=== PATIENT | male | born 1970 | race Caucasian/White ===

== ENCOUNTER 2017-11-20 16:24 | Inpatient (IN) | payer SELFPAY ==
[~2017-11-20] VITALS: Ht 177.8 cm; Wt 101.9 kg
[~2017-11-20 16:24] MED LIST: EPIN.3I IM; FAMO20 PO; OXYACE5T PO; PRED20 PO; RXOXYACE PO
[2017-11-20 16:50] LABS: Calcium, Ionized (POC) 1.09 mmol/L (1.10-1.46); Chloride (POC) 100 mmol/L (98-108); Creatinine (POC) 0.8 mg/dL (0.8-1.3); Glucose (ISTAT POC) 145 mg/dL (70-99); Hemoglobin (POC) 17.7 g/dL (13.5-17.5); Potassium (POC) 4.1 mmol/L (3.5-5.5); Sodium (POC) 140 mmol/L (135-148); Total CO2 (POC) 28 mmol/L (21-32)
[2017-11-20 17:01] LABS: BASOPHILS ABSOLUTE AUTO 0.08 K/mm3 (0.00-0.23); BASOPHILS PERCENT AUTO 1 % (0-2); EOSINOPHILS ABSOLUTE AUTO 0.16 K/mm3 (0.00-0.68); EOSINOPHILS PERCENT AUTO 2 % (0-6); Hematocrit 51.7 % (37.0-53.0); Hemoglobin 17.7 g/dL (13.5-17.5); IMMATURE GRAN PERCENT AUTO 1 % (0-1); LYMPHOCYTES ABSOLUTE AUTO 3.01 K/mm3 (0.84-5.20); LYMPHOCYTES PERCENT AUTO 28 % (21-46); MONOCYTES ABSOLUTE AUTO 0.99 K/mm3 (0.16-1.47); MONOCYTES PERCENT AUTO 9 % (4-13); Mean Corpuscular HGB Conc 34.2 g/dL (31.5-36.5); Mean Corpuscular Volume 91 fL (80-100); NEUTROPHILS ABSOLUTE AUTO 6.36 K/mm3 (1.96-9.15); NEUTROPHILS PERCENT AUTO 60 % (41-73); RDW Standard Deviation 46.5 fL (35.1-46.3); Red Blood Cell Count 5.71 M/mm3 (4.30-5.90)
[2017-11-20 17:17] LABS: Alanine Aminotransfer (ALT/SGP 46 U/L (12-78); Albumin, Blood 3.7 g/dL (3.4-5.0); Albumin/Globulin Ratio 0.9 (0.8-1.8); Alk Phos 103 U/L (50-136); Anion Gap 8 mmol/L (6-16); Aspartate Aminotrans (AST/SGOT 23 U/L (12-37); Bilirubin, Total 0.4 mg/dL (0.1-1.0); Blood Urea Nitrogen 8 mg/dL (8-24); Bun/Creatinine Ratio 9.5 (12.0-20.0); CO2, Blood 26 mmol/L (21-32); Calcium, Blood 8.7 mg/dL (8.5-10.1); Chloride, Blood 103 mmol/L (98-108); Creatinine, Blood 0.84 mg/dL (0.60-1.20); Globulin, Blood 4.1 g/dL (2.2-4.0); Glomerular Filtration Rate >60 (60-); Glucose, Blood 137 mg/dL (70-99); Potassium, Blood 3.4 mmol/L (3.5-5.5); Sodium, Blood 137 mmol/L (136-145); Total Protein, Blood 7.8 g/dL (6.4-8.2)
[2017-11-20 17:27] LABS: Troponin I <0.015 ng/mL (0.000-0.040)
[2017-11-20 17:30] LABS: Mean Platelet Volume 10.5 fL (9.1-12.4); Platelet Count 200 K/mm3 (150-400)
[2017-11-20 23:05] LABS: Troponin I 2.64 ng/mL (0.000-0.040)
[2017-11-21 05:56] LABS: Hematocrit 47.6 % (37.0-53.0); Mean Corpuscular HGB 30.3 pg (26.0-34.0); Mean Corpuscular HGB Conc 33.6 g/dL (31.5-36.5); Mean Corpuscular Volume 90 fL (80-100); Mean Platelet Volume 9.9 fL (9.1-12.4); Platelet Count 272 K/mm3 (150-400); RDW Coefficient Variation 14.2 % (11.7-14.2); RDW Standard Deviation 46.8 fL (35.1-46.3); Red Blood Cell Count 5.28 M/mm3 (4.30-5.90); White Blood Cell Count 11.14 K/mm3 (4.00-11.30)
[2017-11-21 06:15] LABS: Alanine Aminotransfer (ALT/SGP 39 U/L (12-78); Albumin, Blood 3.2 g/dL (3.4-5.0); Albumin/Globulin Ratio 0.9 (0.8-1.8); Alk Phos 102 U/L (50-136); Anion Gap 9 mmol/L (6-16); Aspartate Aminotrans (AST/SGOT 31 U/L (12-37); Bilirubin, Total 0.5 mg/dL (0.1-1.0); Blood Urea Nitrogen 7 mg/dL (8-24); Bun/Creatinine Ratio 9.5 (12.0-20.0); CO2, Blood 24 mmol/L (21-32); Calcium, Blood 8.2 mg/dL (8.5-10.1); Chloride, Blood 104 mmol/L (98-108); Cholesterol 188 mg/dL (50-200); Creatinine, Blood 0.73 mg/dL (0.60-1.20); Globulin, Blood 3.7 g/dL (2.2-4.0); Glomerular Filtration Rate >60 (60-); Glucose, Blood 142 mg/dL (70-99); HDL Cholesterol 27 mg/dL (>39); LDL/HDL RATIO Unable to Calculate; Low Density Lipoprotein Chol Unable to Calculate mg/dL (0-110); Potassium, Blood 4.2 mmol/L (3.5-5.5); Sodium, Blood 137 mmol/L (136-145); Total Protein, Blood 6.9 g/dL (6.4-8.2); Triglycerides 526 mg/dL (30-160); Very Low Density Lipoprot Chol Unable to Calculate mg/dL (6-32)
[2017-11-22 06:35] LABS: Anion Gap 8 mmol/L (6-16); Blood Urea Nitrogen 12 mg/dL (8-24); Bun/Creatinine Ratio 14.1 (12.0-20.0); CO2, Blood 24 mmol/L (21-32); Calcium, Blood 8.7 mg/dL (8.5-10.1); Chloride, Blood 103 mmol/L (98-108); Creatinine, Blood 0.85 mg/dL (0.60-1.20); Glomerular Filtration Rate >60 (60-); Glucose, Blood 145 mg/dL (70-99); Magnesium, Blood 2.1 mg/dL (1.6-2.4); Potassium, Blood 3.9 mmol/L (3.5-5.5); Sodium, Blood 135 mmol/L (136-145)
[2017-11-22] MEDS ORDERED: ASPI81CH PO (09:54)
[2017-11-22] MEDS ORDERED: ATOR40TA PO (09:55)
[2017-11-22] MEDS ORDERED: Coreg25 MG PO (09:58)
[2017-11-22] MEDS ORDERED: CLOP75 PO (09:59)
[2017-11-22] MEDS ORDERED: FAMO20 PO (10:00)
[2017-11-22] MEDS ORDERED: HYDCHL25 PO (10:01)
[2017-11-22] MEDS ORDERED: LISI5 PO (10:02)
[2017-11-22] MEDS ORDERED: OMEG1CAP30 PO (10:03)
== END 2017-11-22 10:50 | disposition home or self-care (01) | DRG 247 ==
LOC: ER 16:24 → ICUW 17:10 → ER 18:25 → ICUW 18:25 → ICUE 18:33 → ICUW 11-21 08:38 → ENPENDDIS 11-22 10:36 → ICUW 11-22 10:50
PROVIDERS: Emergency Medicine; Internal Medicine
PROC: 027034Z Dilation of Coronary Artery, One Artery with Drug-eluting Intraluminal Device, Percutaneous Approach (ICD-10-PCS; principal; 2017-11-20)
PROC: 02C03ZZ Extirpation of Matter from Coronary Artery, One Artery, Percutaneous Approach (ICD-10-PCS; 2017-11-20)
PROC: B2111ZZ Fluoroscopy of Multiple Coronary Arteries using Low Osmolar Contrast (ICD-10-PCS; 2017-11-20)
DX: I21.09 ST elevation (STEMI) myocardial infarction involving other coronary artery of anterior wall (principal); I25.10 Atherosclerotic heart disease of native coronary artery without angina pectoris; R03.0 Elevated blood-pressure reading, without diagnosis of hypertension; E78.1 Pure hyperglyceridemia; Z82.49 Family history of ischemic heart disease and other diseases of the circulatory system; Z87.891 Personal history of nicotine dependence; Z88.1 Allergy status to other antibiotic agents
CPT/HCPCS: 36415; 71045; 80047; 80048; 80053; 80061; 83036; 83735; 83880; 84132; 84484; 85014; 85025; 85027; 85347; 85379; 93005; 93010; 93306; 93454; 96374; 96375; 99152; 99153; 99285-25; C1725; C1757; C1769; C1874; C1894; C9606; J1644; J2250; J3010; J7030; J7040; Q9967

== ENCOUNTER → 2019-05-11 | Outpatient (CLI) | payer BC ==
[~2019-05-11] MED LIST changes: +ASPI81CH PO; +ATOR40TA PO; +CLOP75 PO; +Coreg25 MG PO; +HYDCHL25 PO; +LISI5 PO; +OMEG1CAP30 PO
[2019-05-11 10:20] LABS: BASOPHILS ABSOLUTE AUTO 0.04 K/mm3 (0.00-0.23); BASOPHILS PERCENT AUTO 1 % (0-2); EOSINOPHILS ABSOLUTE AUTO 0.11 K/mm3 (0.00-0.68); EOSINOPHILS PERCENT AUTO 2 % (0-6); Hematocrit 44.7 % (37.0-53.0); Hemoglobin 15.5 g/dL (13.5-17.5); IMMATURE GRAN ABSOLUTE AUTO 0.03 K/mm3 (0.00-0.10); IMMATURE GRAN PERCENT AUTO 0 % (0-1); LYMPHOCYTES ABSOLUTE AUTO 1.39 K/mm3 (0.84-5.20); LYMPHOCYTES PERCENT AUTO 18 % (21-46); MONOCYTES PERCENT AUTO 9 % (4-13); Mean Corpuscular HGB 31.3 pg (26.0-34.0); Mean Corpuscular HGB Conc 34.7 g/dL (31.5-36.5); Mean Corpuscular Volume 90 fL (80-100); Mean Platelet Volume 10.3 fL (9.1-12.4); NEUTROPHILS ABSOLUTE AUTO 5.28 K/mm3 (1.96-9.15); NEUTROPHILS PERCENT AUTO 70 % (41-73); Platelet Count 230 K/mm3 (150-400); RDW Coefficient Variation 12.5 % (11.7-14.2); RDW Standard Deviation 40.8 fL (35.1-46.3); Red Blood Cell Count 4.95 M/mm3 (4.30-5.90); White Blood Cell Count 7.55 K/mm3 (4.00-11.30)
[2019-05-11 10:30] LABS: Alanine Aminotransfer (ALT/SGP 57 U/L (12-78); Albumin, Blood 3.6 g/dL (3.4-5.0); Albumin/Globulin Ratio 0.8 (0.8-1.8); Alk Phos 102 U/L (40-126); Anion Gap 10 mmol/L (6-16); Bilirubin, Total 0.5 mg/dL (0.1-1.0); Blood Urea Nitrogen 9 mg/dL (8-24); Bun/Creatinine Ratio 11.8 (12.0-20.0); CO2, Blood 26 mmol/L (21-32); Calcium, Blood 9.2 mg/dL (8.5-10.1); Chloride, Blood 96 mmol/L (98-108); Creatinine, Blood 0.76 mg/dL (0.60-1.20); Globulin, Blood 4.5 g/dL (2.2-4.0); Glomerular Filtration Rate >60 (60-); Glucose, Blood 329 mg/dL (70-99); Potassium, Blood 4.2 mmol/L (3.5-5.5); Sodium, Blood 132 mmol/L (136-145); Total Protein, Blood 8.1 g/dL (6.4-8.2)
[2019-05-11 10:33] LABS: Aspartate Aminotrans (AST/SGOT 21 U/L (12-37)
== END | disposition home or self-care (01) ==
LOC: LAB SHORT 10:15 → LAB EV 10:15
PROVIDERS: Physician Assistant Surgical
DX: I10 Essential (primary) hypertension (principal)
CPT/HCPCS: 80053; 85025

== ENCOUNTER → 2020-01-09 | Outpatient (CLI) | payer BC | END | disposition home or self-care (01) | LOC: LAB 12:57 → LAB SHORT 12:57 | DX: L02.31 Cutaneous abscess of buttock (principal) | CPT/HCPCS: 87070; 87075; 87147; 87205 ==

== ENCOUNTER 2020-10-06 09:14 | Inpatient (IN) | payer BC ==
[~2020-10-06] VITALS: Ht 177.8 cm; Wt 99.1 kg
[~2020-10-06 09:14] MED LIST changes: -ASPI81CH PO; +Aspir 8181 MG PO; -OMEG1CAP30 PO; +OMEGA-3 + D SO1 EACH PO
[2020-10-06 11:04] LABS: BASOPHILS ABSOLUTE AUTO 0.01 K/mm3 (0.00-0.23); BASOPHILS PERCENT AUTO 0 % (0-2); EOSINOPHILS PERCENT AUTO 0 % (0-6); Hematocrit 41.8 % (37.0-53.0); Hemoglobin 14.7 g/dL (13.5-17.5); Mean Corpuscular HGB 30.2 pg (26.0-34.0); Mean Corpuscular HGB Conc 35.2 g/dL (31.5-36.5); Mean Corpuscular Volume 86 fL (80-100); Mean Platelet Volume 9.6 fL (9.1-12.4); Platelet Count 161 K/mm3 (150-400); RDW Coefficient Variation 11.9 % (11.7-14.2); RDW Standard Deviation 37.7 fL (35.1-46.3); Red Blood Cell Count 4.87 M/mm3 (4.30-5.90); White Blood Cell Count 3.94 K/mm3 (4.00-11.30)
[2020-10-06 11:07] LABS: IMMATURE GRAN ABSOLUTE AUTO 0.02 K/mm3 (0.00-0.10); IMMATURE GRAN PERCENT AUTO 1 % (0-1); LYMPHOCYTES ABSOLUTE AUTO 0.48 K/mm3 (0.84-5.20); LYMPHOCYTES PERCENT AUTO 12 % (21-46); MONOCYTES ABSOLUTE AUTO 0.31 K/mm3 (0.16-1.47); MONOCYTES PERCENT AUTO 8 % (4-13); NEUTROPHILS ABSOLUTE AUTO 3.12 K/mm3 (1.96-9.15); NEUTROPHILS PERCENT AUTO 79 % (41-73)
[2020-10-06 11:42] LABS: Alanine Aminotransfer (ALT/SGP 109 U/L (12-78); Albumin, Blood 2.9 g/dL (3.4-5.0); Albumin/Globulin Ratio 0.6 (0.8-1.8); Alk Phos 90 U/L (50-136); Anion Gap 13 mmol/L (6-16); Aspartate Aminotrans (AST/SGOT 169 U/L (12-37); Bilirubin, Total 0.5 mg/dL (0.1-1.0); Blood Urea Nitrogen 12 mg/dL (8-24); Bun/Creatinine Ratio 12.5 (12.0-20.0); CO2, Blood 20 mmol/L (21-32); Calcium, Blood 8.5 mg/dL (8.5-10.1); Chloride, Blood 90 mmol/L (98-108); Creatinine, Blood 0.96 mg/dL (0.60-1.20); Globulin, Blood 4.6 g/dL (2.2-4.0); Glomerular Filtration Rate >60 (60-); Glucose, Blood 263 mg/dL (70-99); Lactate Dehydrogenase (Ld),Bld 967 U/L (100-240); Potassium, Blood 3.6 mmol/L (3.5-5.5); Sodium, Blood 123 mmol/L (136-145); Total Protein, Blood 7.5 g/dL (6.4-8.2)
[2020-10-06 12:11] LABS: Ferritin, Serum 4177 ng/mL (26-388)
[2020-10-06] MEDS ORDERED: NEBI5 PO (12:51)
[2020-10-06 13:09] LABS: PCO2 Arterial 25.6 mmHg (35-45); PO2 Arterial 49.6 mmHg (80-100); pH Blood Arterial 7.42 (7.35-7.45)
[2020-10-07 05:54] LABS: BASOPHILS ABSOLUTE AUTO 0.02 K/mm3 (0.00-0.23); BASOPHILS PERCENT AUTO 1 % (0-2); EOSINOPHILS PERCENT AUTO 0 % (0-6); Hematocrit 39.2 % (37.0-53.0); Mean Corpuscular HGB 31.2 pg (26.0-34.0); Mean Corpuscular HGB Conc 35.7 g/dL (31.5-36.5); Mean Corpuscular Volume 87 fL (80-100); Mean Platelet Volume 9.8 fL (9.1-12.4); Platelet Count 167 K/mm3 (150-400); RDW Coefficient Variation 12.1 % (11.7-14.2); RDW Standard Deviation 39.1 fL (35.1-46.3); Red Blood Cell Count 4.49 M/mm3 (4.30-5.90); White Blood Cell Count 3.56 K/mm3 (4.00-11.30)
[2020-10-07 06:03] LABS: IMMATURE GRAN ABSOLUTE AUTO 0.02 K/mm3 (0.00-0.10); IMMATURE GRAN PERCENT AUTO 1 % (0-1); LYMPHOCYTES ABSOLUTE AUTO 0.58 K/mm3 (0.84-5.20); LYMPHOCYTES PERCENT AUTO 16 % (21-46); MONOCYTES ABSOLUTE AUTO 0.34 K/mm3 (0.16-1.47); MONOCYTES PERCENT AUTO 10 % (4-13); NEUTROPHILS PERCENT AUTO 73 % (41-73)
[2020-10-07 06:14] LABS: Alanine Aminotransfer (ALT/SGP 87 U/L (12-78); Albumin, Blood 2.6 g/dL (3.4-5.0); Albumin/Globulin Ratio 0.6 (0.8-1.8); Alk Phos 80 U/L (50-136); Anion Gap 11 mmol/L (6-16); Aspartate Aminotrans (AST/SGOT 111 U/L (12-37); Bilirubin, Total 0.5 mg/dL (0.1-1.0); Blood Urea Nitrogen 19 mg/dL (8-24); Bun/Creatinine Ratio 20.6 (12.0-20.0); CO2, Blood 20 mmol/L (21-32); Calcium, Blood 8.9 mg/dL (8.5-10.1); Chloride, Blood 99 mmol/L (98-108); Creatinine, Blood 0.92 mg/dL (0.60-1.20); Globulin, Blood 4.2 g/dL (2.2-4.0); Glomerular Filtration Rate >60 (60-); Glucose, Blood 305 mg/dL (70-99); Potassium, Blood 3.9 mmol/L (3.5-5.5); Sodium, Blood 130 mmol/L (136-145); Total Protein, Blood 6.8 g/dL (6.4-8.2)
--- NOTE | 2020-10-07 18:17 | NUR ---
SHIFT SUMMARY NO ACUTE EVENTS SINCE ARRIVAL FROM ED, PT IS ALERT AND ORIENTED. PT CALLS APPROPRIATELY AND IS INDEPENDENT IN ROOM. NEGATIVE FOR CIWA. PT REMAINS ON AIRVO, MAINTAINING >90% FOR MAJORITY OF TIME, WILL DROP TO O2 SATURATION OF HIGH 80s AT TIMES WITH AMBULATION BUT RECOVERS TO 90%+ QUICKLY. PT DENIES PAIN/DIZZINESS/NAUSEA.
--- NOTE | 2020-10-08 06:37 | NUR ---
SHIFT SUMMARY PT AOX4, ON TELE SINUS IN 70'S. BREATHING EVEN AND UNLABORED WHILE IN BED. UP INDEPENDENTLY TO USE URINAL IN ROOM. NEEDS SOME ASSISTANCE TO TAKE AIRVO TO THE BATHROOM. HAD X2 BM. ONE SMALL, AND ONE EPISODE OF SCANT SOFT STOOL. COLOR IS DARK, BLACK. PT HAD SEVERAL EPISODES OF DESATURATION INTO LOW 80'S WHILE ON AIRVO. AROUND 0600 PT DESATS TO 83% WHILE LAYING ON R SIDE SLEEPING WHILE ON 55 L 80% AIRVO, TURNED UP TO 85%. PT DYSPNEIC W/EXERTION. CBG'S HIGH THROUGH SHIFT, DOSED PER MEDIUM AND THEN HIGH SLIDING SCALE.
--- NOTE | 2020-10-08 11:43 | NUR ---
PHYSICIAN NOTIFIED PHYSICIAN NOTIFIED PT'S CBG OVER 350. ORDERS TO HAVE INSULIN SLIDING SCALE CHAGNED TO HIGH. SEE EHR.
--- NOTE | 2020-10-08 18:21 | NUR ---
SHIFT SUMMARY PT ALERT AND ORIENTED. CIWA STABLE AT 2. HR STABLE. BP STABLE. NO CP OR PRESSURE REPORTED. OXYGEN SATURATION MAINTAINED ABOVE 90% ON AIRVO AT 55 L/70%. PT DESATS WITH ACTIVITY. ENCOURAGED TO PRONE. PT STATES HE CANNOT PRONE BUT ABLE TO LAY ON SIDE. NO DIARRHEA REPORTED THIS SHIFT. PT IND IN ROOM AT THIS TIME. WILL CONT TO MONITOR UNTIL REPORT GIVEN TO NIGHTSHIFT RN.
--- NOTE | 2020-10-09 04:58 | NUR ---
SHIFT SUMMARY PATIENT IS ALERT AND ORIENTED X4. 0XYGEN NEEDS INCREASED WHILE SLEEPING. 02 SATS 91% ON AIRVO @50L 80% FIO2. PT TEACHING ON NOT EXERTING SELF TOO MUCH DUE TO OXYGEN NEEDS AND 02 DESATURATES SIGNIFICANTLY WITH ACTIVITY. BLOOD GLUCOSE OF 407 CALLED TO HOSPITALIST AND PATIENT COVERED PER EMAR, ORDERS TO RECHECK IN 2 HOURS, PT CBG TRENDING DOWN. PATIENT IS INDEPENDENT IN THE ROOM. VSS, NO ACUTE CHANGES. CALL LIGHT IN REACH.
--- NOTE | 2020-10-09 18:01 | NUR ---
SHIFT SUMMARY PT ALERT AND ORIENTED X 4. REPORTS TO BE MORE "EXHAUSTED TODAY." DESATS QUICKLY WITH ACTIVITY. INCREASE IN O2 DEMAND TO 60L AND 83% FIO2 ON AIRVO TO MAINTAIN O2 SATS ABOVE 90%. PT AGREED TO PRONE. PT O2 SATURATION GREATLY IMPROVED TO 94-96% WHILE PRONING. PT PROVIDED WITH ENCOURAGMENT TO CONT TO PRONE, IMPROVEMENTS ARE SEEN. PT ABLE TO TURN SELF IN BED NEEDED. HR STABLE. BP STABLE. NO CP OR PRESSURE REPORTED. CALL LIGHT WITHIN REACH. WILL CONT TO MONITOR UNTIL REPORT GIVEN TO NIGHTSHIFT RN.
[2020-10-10 04:02] LABS: BASOPHILS ABSOLUTE AUTO 0.02 K/mm3 (0.00-0.23); BASOPHILS PERCENT AUTO 0 % (0-2); EOSINOPHILS PERCENT AUTO 0 % (0-6); Hemoglobin 14.5 g/dL (13.5-17.5); Mean Corpuscular HGB 30.7 pg (26.0-34.0); Mean Corpuscular HGB Conc 35.4 g/dL (31.5-36.5); Mean Corpuscular Volume 87 fL (80-100); Mean Platelet Volume 9.6 fL (9.1-12.4); Platelet Count 268 K/mm3 (150-400); RDW Coefficient Variation 11.9 % (11.7-14.2); RDW Standard Deviation 38.5 fL (35.1-46.3); Red Blood Cell Count 4.73 M/mm3 (4.30-5.90); White Blood Cell Count 8.51 K/mm3 (4.00-11.30)
[2020-10-10 04:07] LABS: IMMATURE GRAN ABSOLUTE AUTO 0.04 K/mm3 (0.00-0.10); IMMATURE GRAN PERCENT AUTO 1 % (0-1); LYMPHOCYTES ABSOLUTE AUTO 0.78 K/mm3 (0.84-5.20); LYMPHOCYTES PERCENT AUTO 9 % (21-46); MONOCYTES ABSOLUTE AUTO 0.45 K/mm3 (0.16-1.47); MONOCYTES PERCENT AUTO 5 % (4-13); NEUTROPHILS ABSOLUTE AUTO 7.22 K/mm3 (1.96-9.15); NEUTROPHILS PERCENT AUTO 85 % (41-73)
[2020-10-10 04:22] LABS: Albumin, Blood 2.6 g/dL (3.4-5.0); Anion Gap 10 mmol/L (6-16); Blood Urea Nitrogen 21 mg/dL (8-24); Bun/Creatinine Ratio 26.9 (12.0-20.0); CO2, Blood 23 mmol/L (21-32); Calcium, Blood 8.7 mg/dL (8.5-10.1); Chloride, Blood 100 mmol/L (98-108); Creatinine, Blood 0.78 mg/dL (0.60-1.20); Glomerular Filtration Rate >60 (60-); Glucose, Blood 280 mg/dL (70-99); Magnesium, Blood 1.9 mg/dL (1.6-2.4); Phosphorus, Blood 4.4 mg/dL (2.5-4.9); Potassium, Blood 3.8 mmol/L (3.5-5.5); Sodium, Blood 133 mmol/L (136-145)
--- NOTE | 2020-10-10 05:05 | NUR ---
SHIFT SUMMARY PATIENT IS ALERT AND ORIENTED X4. 02 SATS 94% ON AIRVO 60L FI02 80% WHILE PRONING. ANY EXERTION OR PATIENT NOT PRONING 02 SATS 83-86%. PATIENT HAS BEEN PRONING ALL NIGHT. COUGHING UP PHLEGM, AND HAVING COUGHING FITS, CALLED HOSPITALIST AND GAVE MUCINEX, SEE EMAR. PATIENT TEACHING PROVIDED ON SAFETY AND PATIENT AGREED TO STOP WALKING ACROSS THE ROOM WITHOUT STAFF PRESENT DUE TO OXYGEN REQUIREMENTS. CBG OF [phone] CALLED TO HOSPITALIST RECHECKED AT MIDNIGHT AND TRENDING DOWN. PATIENT INDEPENDENT WITH REPOSITIONING. CALL LIGHT IN REACH.
[2020-10-10 06:53] LABS: BASOPHILS PERCENT MAN 0 % (0-2); EOSINOPHILS PERCENT MAN 0 % (0-6); LYMPHOCYTES % ATYPICAL MANUAL 2 % (0-0); LYMPHOCYTES ABSOLUTE MAN 1.02 K/mm3 (0.84-5.20); LYMPHOCYTES PERCENT MAN 10 % (21-46); MONOCYTES ABSOLUTE MAN 0.25 K/mm3 (0.16-1.47); MONOCYTES PERCENT MAN 3 % (4-13); NEUTROPHILS ABSOLUTE MAN 7.23 K/mm3 (1.96-9.15); SEG NEUTROPHILS PERCENT MAN 85 % (41-73); TOTAL CELLS COUNTED 100
--- NOTE | 2020-10-10 10:58 | NUR ---
PT ALERT AND ORIENTED X4. NEURO WNL. PT TIRED AND SLEEPY. ON AIRVO AT 60L AND 86% THIS AM. LUNGS SOUNDING DIM AND COARSE. COUGHING ON AND OFF. PRODUCTIVE, HARSH, HACKING, COUGH. SATING 90-93%. WHEN UP MOVING AROUND, DESATS TO LOW 80'S. ABLE TO RECOVER AFTER 3-4 MIN. PRONING ENCOURAGED. TELE SHOWING SINUS WITH HR 70'S. DENIES CHEST PAIN/PRESSURE. VITAL SIGNS STABLE. BOWEL TONES PRESENT. USING URINAL AT BEDSIDE. OVERALL FEELING WEAK. SKIN - SCATTERED BRUISING. ACHS, BLOOD SUGARS. EATING WELL. CIWA SCORED 0. DENIES PAIN/NEEDS AT THIS TIME. WILL CONTINUE TO ENCOURAGE PRONING AND MONITOR STATUS. CALL LIGHT IN REACH.
--- NOTE | 2020-10-10 14:17 | NUR ---
PT SLEEPING AT THIS TIME. PRONING ON AND OFF THROUGHOUT THE AFTERNOON. VERY MOTIVATED IN WORKING ON PEEP VALVE PROVIDED BY [facility]ATORY CARE. WILL CONTINUE TO MONITOR.
--- NOTE | 2020-10-10 18:24 | NUR ---
SHIFT SUMMARY: NO ACUTE CHANGES. AIRVO 60L AND 84%. TELE REMAINS UNCHANGED. PT USING PEEP BREATHING DEVICE THROUGHOUT SHIFT. MOTIVATED TO GET BETTER. UP IN RECLINER FOR MEALS. SLEEPING ON AND OFF. USING URINAL AT BEDSIDE. CALL LIGHT IN REACH. DENIES NEEDS AT THIS TIME. WILL CONTINUE TO MONITOR AND REPORT OFF.
--- NOTE | 2020-10-10 20:33 | NUR ---
ASSUMED CARE PT SELF PRONED UPON ARRIVAL. IS ALERT AND ORIENTED. VITAL SIGNS ARE STABLE. SATS WERE ABOVE 90% ON AIRVO 60L 84%. PT DENIES CHEST PAIN. IS USING URINAL AT BEDSIDE. CALL LIGHT IS WITHIN REACH. WILL CONTINUE TO MONITOR.
--- NOTE | 2020-10-11 02:23 | NUR ---
PT IS NOW ON 60L 90%FIO2 AIRVO
--- NOTE | 2020-10-11 03:59 | NUR ---
PT IS ON 60L 95%FIO2 WITH SATS 85-51%.
--- NOTE | 2020-10-11 05:37 | NUR ---
SHIFT SUMMARY PT IS ALERT AND ORIENTED. VITALS ARE STABLE. PT IS ON AIRVO 60L 95%FIO2 WITH SATS OF 85-90. PT DESATS WITH ANY EXERSION. PT HAS A VERY HARD TIME CATCHING BREATH AND DESATS TO HI70'S LOW80'S WHEN SITTING UP TO USE URINAL. PT VERBALIZED "IM DYING IN HERE" WHEN SHORT OF BREATH. HE IS LAYING ON SIDE AND ALMOST TO PRONING BUT STATES THAT IT IS TOO HARD FOR HIM, BUT TRYING. CALL LIGHT IS WITHIN REACH.
[2020-10-11 08:51] LABS: PCO2 Arterial 33.2 mmHg (35-45); PO2 Arterial 51.7 mmHg (80-100); pH Blood Arterial 7.52 (7.35-7.45)
--- NOTE | 2020-10-11 09:00 | NUR ---
PT ALERT AND ORIENTED X4. ON AIRVO THIS AM SATING 83-84%. SWITCHED OVER TO BIPAP AT 0830, SETTINGS 09/02 AT 100%. SATING NOW 90-92% ON BIPAP. ANXIETY WHEN BIPAP WAS FIRST APPLIED, NEW ORDER FOR ONE DOSE ATIVAN GIVEN. PATIENT ABLE TO SIT IN RECLINER WITH BIPAP. HARSH, PRODUCTIVE COUGH. TELE SHOWING SINUS WITH HR 70'S. DENIES CHEST PAIN/PRESSURE. VITAL SIGNS STABLE. DENIES ANY PAIN THIS AM. COMPLAINS OF SHORTNESS OF BREATH. BOWEL TONES PRESENT. PPP. SKIN - BRUISING SCATTERED THROUGHOUT. PATIENT ABLE TO STAND AND TRANSFER FROM BED TO RECLINER. USING URINAL AT BEDSIDE. EDUCATION ABOUT POSSIBLE NEXT STEPS AND INTUBATION DISCUSSED WITH PATIENT. PATIENT ACKNOWLEDGES THESE NEXT STEPS BUT CONSISTENTLY ASKING FOR WATER. WATER GIVEN IN SHORT PERIODS HE IS ON BIPAP AT THIS TIME. CALL PLACED TO DR. AGUILERA TO UPDATE ON PATIENT CONDITION. NEW ORDERS FOR D-DIMER, ABG AND CHEST XRAY.
--- NOTE | 2020-10-11 11:10 | NUR ---
TRANSFER: PATIENT TRANSFER TO ICU 6 VIA RECLINER AND BIPAP. BIPAP SETTINGS REMAIN THE SAME 09/02 AT 100%. SATING 89-90%. VITAL SIGNS REMAIN STABLE. PATIENT FEELING ANXIOUS. NO CHANGES IN TELE. PATIENT TRANSFERRED WITH ALL BELONGINGS. REPORTED OFF TO ICU NURSE.
--- NOTE | 2020-10-11 11:21 | NUR ---
VERBAL ORDER FOR RESTRAINTS... THE PT WAS INTUBATED AT 1121, DR. LANDIN GAVE THIS RN A VERBAL ORDER TO APPLY BILATERAL WRIST RESTRAINTS TO PREVENT SELF EXTUBATION. SWB WERE APPLIED AT THIS TIME BY THIS RN.
--- NOTE | 2020-10-11 12:00 | NUR ---
PT UPDATE... AT 1056 PT WAS TRANSFERED OVER TO THE ICU FROM PCU, PT WAS IN A RECLINER CHAIR WHEN HE ARRIVED ON THE UNIT, THE PT WAS ON THE BIPAP AT 13/11 AND 100% PT'S O2 SATS WERE IN THE LOW 90'S. PT STOOD FROM THE CHAIR TO THE BED AND SAT ON THE SIDE OF THE BED, THE PT'S O2 SATS DROPPED DOWN TO THE 60'S THEN DOWN TO THE 40'S, THE PT WAS GIVEN 2MG IV ATIVAN TO HELP RELAX THE PT. AT 1107 DR. LANDIN WAS CALLED TO THE ROOM TO ASSESS THE PT, THE PLAN WAS TO INTUBATE THE PT. THE PT WAS PREPPED FOR INTUBATION, THE PT'S O2 SATS WERE UP TO THE 70'S AT THIS TIME. AT 1112 THE PT WAS GIVEN 50MCG OF IV FENTANYL, AT 1117 HE WAS GIVEN 20 OF ETOMIDATE, 80MCG OF PROPOFOL, AT 1118 THE PT WAS GIVEN 20 OF JAIDEN, AN ATTEMPT TO INTUBATE WAS DONE AT THIS TIME, THE PT WAS STILL AWAKE SO ANOTHER 40MCG OF PROPOFOL WAS GIVEN AFTER THIS WAS GIVEN THE PT WAS INTUBATED WITH AN ET TUBE SIZE 8.0, 24 AT THE LIP WITH COLOR CHANGE AT 1121. THE PT'S VENT SETTINGS DURING THIS TIME WERE AC/PC 12/20/100%FIO2 WITH O2 SATS AT 91%. THE PT WAS STARTED ON A PROPOFOL DRIP, THE DRIP WAS TITRATED UP TO 80MCG D/T THE PT'S VENT INTOLERANCE, AT 1143 THE PT WAS GIVEN 4MG IV ATIVAN, DURING THIS TIME THE PT'S BP DROP WITH MAPS <60, DR. LANDIN AWARE AND A 500MLS BOLUS OF NS WAS STARTED, THIS DID NOT IMPROVE HIS BP, DR. LANDIN ORDERED A LEVOPHED DRIP, PHARMACY WAS CALLED TO GET THE DRIP STAT. DURING THIS TIME THE PT'S BP CONTINUED TO DROP, AT 1156 THE PT WAS GIVEN 1MG IV NEOSENEPHRINE, THIS DID NOT BRING HIS MAP >60 AT 1158 THE PT WAS GIVEN ANOTHER DOSE OF 1MG IV DARRIN. AFTER THIS THE LEVOPHED DRIP ARRIVED AND WAS STARTED BY THIS RN. DR. LANDIN GAVE THE OKAY TO GIVE THE LEVOPHED PERIPHREALLY IN THE PT'S 18G IN THE RIGHT AC UNTIL A LINE COULD BE OBTAINED. AT 1210 THE PT'S HR STARTED TO TREND DOWN FROM THE 70'S TO THE 50'S THEN THE 40'S. THE PT'S PROPOFOL HAD BEEN DECREASED BACK DOWN TO 10MCG D/T THE PT'S BRADYCARDIA. DR. LANDIN NOTIFIED AND AN ORDER WAS OBTAINED FOR 1/2 AMP OF ATROPINE, THIS WAS GIVEN AND THE PT'S HR IMPROVED BACK UP TO THE 60'S. THE PT WAS STARTED ON A VERSED DRIP AT 2MG/HR. AT 1230 WAS AT THE BEDSIDE TO START A RIGHT IJ CENTRAL LINE. THE PT WAS GIVEN 2MG IV VERSED PUSH FROM THE VERSED DRIP, AND THE DRIP WAS INCREASED FROM 2MG/HR TO 4MG/HR PER DR. LANDIN. AT 1253 THE PT WAS GIVEN ANOTHER 4MG IV PUSH OF VERSED D/T THE PT NOT BEING SEDATED ENOUGH TO INSERT THE CENTRAL LINE. AFTER THIS WAS DONE DR. LANDIN WAS ABLE TO GET THE CENTRAL LINE IN PLACE. A CHEST XRAY WAS DONE AND CONFRIMED PLACEMENT OF THE ET TUBE, THE OG TUBE AND THE RIGHT IJ CENTRAL LINE. AT APROX 1440 THE PT WAS TAKEN TO CT FOR A CTA TO R/O P.E. AND WAS BROUGHT BACK TO THE ROOM WITH OUT ANY ISSUE. THE PT'S FAMILY WAS NOTIFIED OF THE CHANGE IN THE PT'S CONDITION, THE PT'S DAUGHTER CAME INTO THE ICU FOR AN UPDATE BY DR. DIA AND THEN LEFT. THE PT'S VS HAVE BEEN STABLE SINCE RETURNING FROM CT. A TEMP OAKES WAS PLACED BY THIS RN. WILL CONTINUE TO MONITOR.
[2020-10-11 13:44] LABS: Source, Urine Catheter
[2020-10-11 13:49] LABS: Appearance, Urine Clear (Clear); Bilirubin, Urine Neg (Neg); Blood, Urine Neg (Neg); Color, Urine Yellow (P-Yellow); Glucose Qualitative, Urine 4+ (Neg); Ketones, Urine 2+ (Neg); Leukocyte Esterase, Urine Neg (Neg); Nitrite, Urine Neg (Neg); Protein, Urine 2+ (Neg); Specific Gravity, Urine 1.015 (1.003-1.022); Urobilinogen, Urine NORM (Normal)
[2020-10-11 13:56] LABS: Bacteria Mod /hpf; Hyaline Casts 0-2 /lpf (0-2); Red Blood Cells, Urine Not Seen /hpf (0-2); Squamous Epithelial Cells Rare /hpf (Few); White Blood Cells, Urine 0-2 /hpf (0-5)
--- NOTE | 2020-10-11 18:57 | NUR ---
SHIFT SUMMARY... NO ACUTE NEGATIVE CHANGES SINCE PREVIOUS NOTES. THE PT'S VERSED DRIP WAS TITRATED OFF, THE PROPOFOL WAS INCREASED TO 35MCG, THE LEVOPHED CONITNUES AT 4MCG WITH MAPS >65. THE PT'S OAKES IS PATENT AND DRAINED 2250MLS OF CLEAR YELLOW URINE THIS SHIFT. PT HAS NOT HAD A BM. PT'S HR CONTINUES TO BE IN THE 50'S-60'S THIS IS OKAY PER DR. LANDIN. THE PT HAS VERY SCANT TO NO SECRETIONS SUCTIONED AT THIS TIME. L/S CONTINUE TO BE CLEAR AND DIM. PT'S FAMILY UPDATED ON THE PT'S CONIDTION AND PLAN OF CARE. WILL CONTINUE TO MONITOR UNTIL REPORT IS GIVEN TO ONCOMING RN.
--- NOTE | 2020-10-11 20:15 | NUR ---
20GA TO L FA
[2020-10-12 05:24] LABS: BASOPHILS ABSOLUTE AUTO 0.01 K/mm3 (0.00-0.23); BASOPHILS PERCENT AUTO 0 % (0-2); EOSINOPHILS ABSOLUTE AUTO 0.09 K/mm3 (0.00-0.68); EOSINOPHILS PERCENT AUTO 1 % (0-6); Hematocrit 40.3 % (37.0-53.0); Hemoglobin 13.9 g/dL (13.5-17.5); IMMATURE GRAN ABSOLUTE AUTO 0.08 K/mm3 (0.00-0.10); IMMATURE GRAN PERCENT AUTO 1 % (0-1); LYMPHOCYTES ABSOLUTE AUTO 0.47 K/mm3 (0.84-5.20); LYMPHOCYTES PERCENT AUTO 7 % (21-46); MONOCYTES ABSOLUTE AUTO 0.26 K/mm3 (0.16-1.47); MONOCYTES PERCENT AUTO 4 % (4-13); Mean Corpuscular HGB Conc 34.5 g/dL (31.5-36.5); Mean Corpuscular Volume 90 fL (80-100); Mean Platelet Volume 10.2 fL (9.1-12.4); NEUTROPHILS ABSOLUTE AUTO 6.05 K/mm3 (1.96-9.15); NEUTROPHILS PERCENT AUTO 87 % (41-73); Platelet Count 193 K/mm3 (150-400); RDW Coefficient Variation 12.4 % (11.7-14.2); Red Blood Cell Count 4.49 M/mm3 (4.30-5.90); White Blood Cell Count 6.96 K/mm3 (4.00-11.30)
[2020-10-12 05:49] LABS: Anion Gap 6 mmol/L (6-16); Blood Urea Nitrogen 16 mg/dL (8-24); Bun/Creatinine Ratio 22.6 (12.0-20.0); CO2, Blood 29 mmol/L (21-32); Calcium, Blood 8.9 mg/dL (8.5-10.1); Chloride, Blood 102 mmol/L (98-108); Creatinine, Blood 0.71 mg/dL (0.60-1.20); Glomerular Filtration Rate >60 (60-); Glucose, Blood 212 mg/dL (70-99); Sodium, Blood 137 mmol/L (136-145)
--- NOTE | 2020-10-12 06:21 | NUR ---
SHIFT SUMMARY PT REMAINS FAIRLY STABLE THROUGHOUT THE NIGHT WITH ONLY 1 MCG OF LEVOPHED TO MAINTAIN ADEQUATE BP, UNTIL A SLIGHT REPOSITION AT 0515 RESULTED IN HIS SPO2 DROPPING TO 85%. SEDATION WAS INCREASED AND FENTANYL GIVEN FOR PAIN, WITH NO RESULT. RT IS CALLED TO BEDSIDE TO ADJUST VENT SETTINGS FIO2 WAS ALREADY AT 100%. PT DID NOT RESPOND TO INCREASED PEEP, SO DECISION WAS MADE TO PRONE. EXTRA STAFF WAS CALLED TO THE BEDSIDE TO FACILITATE PRONING. PT RESPONDED FAVORABLY TO PRONING AND VENT SETTINGS RETURNED TO PEEP 13 AND FIO2 DECREASED TO 90%. WILL CONTINUE TO MONITOR AND REPORT TO ONCOMING SHIFT.
--- NOTE | 2020-10-12 10:16 | NUR ---
AM NOTE... ASSUMED CARE OF PT AT 0700. PT IS INTUBATED AND SEDATED. THIS RN NOTED DURING AM ASSESSMENT THAT THE PT WAS PULLING AT HIS RESTRAINTS, HIS RR WAS IN THE 30'S AND HE WAS NOT BREATHING WELL WITH THE VENT, THE PT'S PROPOFOL WAS INCREASED FROM 50 TO 60MCG AND THE PT WAS GIVEN 50MCG IV FENTANYL, THIS HELPED SEDATED THE PT AND RELAX HIM. THE PT CONTINUES TO BE ON A LOW DOSE OF LEVOPHED AT 2MCG WITH MAPS >65. L/S ARE CLEAR IN THE UPPER/MID LOBES AND DIM IN THE LOWER LOBES. NO EDEMA IS NOTED ON ASSESSMENT. BT PRESENT AND HYPOACTIVE, OG TUBE IS PATENT. OAKES IS PATENT, HOWEVER THE PT'S URINE IS NOTED TO BE YELOW AND VERY CLOUDY WHEN IT WAS CLEAR/YELLOW YESTERDAY. PROVIDER IS AWARE AND AN ORDER FOR A NEW UA W/CULTURE WAS OBTAINED. PT CONTINUES TO BE PRONED AT THIS TIME. WILL CONTINUE TO MONITOR.
[2020-10-12 13:42] LABS: Source, Urine Catheter
[2020-10-12 13:50] LABS: Appearance, Urine Hazy (Clear); Bilirubin, Urine Neg (Neg); Blood, Urine 2+ (Neg); Color, Urine Amber (P-Yellow); Glucose Qualitative, Urine Neg (Neg); Ketones, Urine 2+ (Neg); Leukocyte Esterase, Urine 1+ (Neg); Nitrite, Urine Neg (Neg); Protein, Urine 3+ (Neg); Specific Gravity, Urine 1.015 (1.003-1.022); Urobilinogen, Urine 1+ (Normal)
[2020-10-12 13:58] LABS: Bacteria Many /hpf; Squamous Epithelial Cells Few /hpf (Few)
[2020-10-12 13:59] LABS: Amorphous Light (0-Heavy); Granular Casts Rare /lpf (0)
--- NOTE | 2020-10-12 15:09 | NUR ---
PT UPDATE... THIS RN ATTEMPTED TO TURN THE LEVOPHED DRIP FROM 2MCG TO OFF, HOWEVER THE PT'S MAP DROPED DOWN TO <65, THE LEVOPHED WAS TURNED BACK ON TO 8MCG AND TITRATED DOWN TO 6MCG, WILL CONTINUE TO TITRATE LOW POSSIBLE. AFTER THIS THIS RN AND 2 OTHER STAFF SLIGHTLY TURNED THE PT TO THE RIGHT JUST ENOUGH TO TUCK A PILLOW UNDER HIS RIGHT SHOULDER, WHEN THIS HAPPENED THE PT'S O2 SATS DROPPED DOWN TO 80%, THE PT HAD TO BE TURNED UP TO 100% FIO2 FOR APROX 10 MINS TO GET THE PT'S O2 SATS >88%. RT WAS NOTIFIED, THE PT WAS SUCTIONED AND THERE WAS NO SECRETIONS AT ALL. THE PT'S FIO2 WAS INCREASED FROM 70% TO 85% TO KEEP HIS O2 SATS >88%. TUBE FEEDS WERE STARTED WITH VITAL HP AT 15MLS/HR WITH 30MLS H2O FLUSHES Q 4 HRS UNTIL DIETARY CAN ASSESS THE PT. PT HAS ALSO BEEN GETING FENTANYL 50MCG IV PUSHES Q1 HR TO ADJUNCT HIS SEDATION. WILL CONTINUE TO MONITOR.
--- NOTE | 2020-10-12 18:32 | NUR ---
SHIFT SUMMARY... PT IS VERY SENSITIVE TO LACK OF SEDATION, IF THE PROPOFOL DRIP STOPS D/T THE BOTTLES BEING LOW OR EMPTY THE PT WILL START TO COUGH AND HIS O2 SATS WILL DROP TO THE LOW 80'S IN A VERY MINIMAL AMOUNT OF TIME, DR. LANDIN AWARE, NEW ORDERS WERE OBTAINED FOR A FENTANYL DRIP, THIS WAS STARTED AT 50MCG/HR, APROX 2 HOURS LATER THE PT'S PROPOFOL RAN OUT AND THE PT STARTED TO COUGH AGAIN, HIS O2 SATS DROPPED, THE FIO2 WAS INCREASED TO 100% AND IT TOOK APROX 15 MINS FOR HIM TO RECOVER HIS O2 SATS >89%. DR. LANDIN NOTIFIED AND THE FENTANYL DRIP WAS INCREASED TO 100MCG/HR. PT HAS NO TOLERANCE FOR ANY TYPE OF MOVEMENT OR REPOSITIONING BY STAFF HIS O2 SATS DROP VERY QUICKLY AND HE TAKES A LONG TIME TO RECOVER. DR. LANDIN AWARE AND DOES NOT WANT THE PT UN-PRONED UNTIL THE MORNING AND THEN THE PROVIDERS WILL RE-ASSESS. THE PT'S OAKES IS PATENT AND DRAINING VERY CLOUDY DARK DENISE URINE TO GRAVITY, THE PT ONLY HAD 350MLS OF URINE OUT THIS SHIFT. THE PT HAS NOT HAD A BM THIS SHIFT. THE PT'S DAUGHTER WAS AT THE BEDSIDE FOR VISITING HOURS, SHE WAS UPDATED BY DR. LANDIN AND THIS RN. TUBE FEEDS WERE STARTED AT 15MLS/HR WITH NO RESIDUALS AT THIS TIME. PT CONTINUES TO BE ON LEVOPHED AT 6MCG TO KEEP MAPS >65. WILL CONTINUE TO MONITOR UNTIL REPORT IS GIVEN ONCOMING RN.
--- NOTE | 2020-10-12 19:15 | NUR ---
ASSUMED CARE OF PATIENT. REPORT RECEIVED FROM EUSEBIO JOHN. PT IS TO REMAIN PRONED WITH NO TURNING DUE TO AGITATION AND SPO2 DROPS SIGNIFICANTLY. PT IS NOW ON FENTANYL GTT IN ADDITION TO PROPOFOL GTT FOR SEDATION AND VENT COMPLIANCE. SPO2 IN LOW 90'S ON 90% FIO2. PT IS NOW FEBRILE WITH TEMP OF 102 BY OAKES TEMP PROBE. WILL APPLY FAN AND COOL PACKS AND GIVE TYLENOL.
--- NOTE | 2020-10-12 20:30 | NUR ---
DR LANDIN CONTACTED FOR ORDERS. PT DESATURATED TO 70'S WITH ONLY GENTLE ORAL CARE. ALSO REPORTED FEVER OF 102.2 DESPITE TYLENOL, COOL PACKS TO AXILLA AND FAN. BLOOD CX ORDERED WELL ATIVAN IV FOR SEDATION AND VENT COMPLIANCE.
--- NOTE | 2020-10-13 00:25 | NUR ---
DAUGHTER GAYE IS UPDATED BY PHONE.
[2020-10-13 04:32] LABS: Hematocrit 42.7 % (37.0-53.0); Hemoglobin 14.2 g/dL (13.5-17.5); Mean Corpuscular HGB 30.7 pg (26.0-34.0); Mean Corpuscular HGB Conc 33.3 g/dL (31.5-36.5); Mean Corpuscular Volume 92 fL (80-100); Mean Platelet Volume 10.8 fL (9.1-12.4); Platelet Count 253 K/mm3 (150-400); RDW Standard Deviation 43.8 fL (35.1-46.3); Red Blood Cell Count 4.63 M/mm3 (4.30-5.90); White Blood Cell Count 10.36 K/mm3 (4.00-11.30)
[2020-10-13 04:52] LABS: Anion Gap 7 mmol/L (6-16); Blood Urea Nitrogen 27 mg/dL (8-24); Bun/Creatinine Ratio 28.1 (12.0-20.0); CO2, Blood 27 mmol/L (21-32); Calcium, Blood 8.4 mg/dL (8.5-10.1); Chloride, Blood 99 mmol/L (98-108); Creatinine, Blood 0.96 mg/dL (0.60-1.20); Glomerular Filtration Rate >60 (60-); Glucose, Blood 321 mg/dL (70-99); Potassium, Blood 4.2 mmol/L (3.5-5.5); Sodium, Blood 133 mmol/L (136-145)
[2020-10-13 04:58] LABS: BAND PERCENT MAN 7 % (0-8); BASOPHILS PERCENT MAN 1 % (0-2); EOSINOPHILS ABSOLUTE MAN 0.93 K/mm3 (0.00-0.68); EOSINOPHILS PERCENT MAN 9 % (0-6); LYMPHOCYTES PERCENT MAN 2 % (21-46); MONOCYTES PERCENT MAN 1 % (4-13); MYELOCYTE PERCENT MAN 1 % (0-0); SEG NEUTROPHILS PERCENT MAN 79 % (41-73); TOTAL CELLS COUNTED 100
--- NOTE | 2020-10-13 06:28 | NUR ---
SHIFT SUMMARY PT DOES NOT TOLERATE BEING DISTURBED IN ANY WAY WITH SPO2 DROPPING TO THE 80'S AND 70'S WITH EVEN GENTLE ORAL CARE. FEVER IS IMPROVED WITH TYLENOL, ICE PACKS, AND FAN. PT REMAINS ADEQUATELY SEDATED WITH PROPOFOL AND FENTANYL GTT AND 1 PRN DOSE OF ATIVAN. CBG'S REMAIN ELEVATED AND ARE COVERED WITH HSS. DAMP LINES ARE CHANGED TOLERATED BY PT. WILL CONTINUE TO MONITOR AND REPORT TO ONCOMING SHIFT.
--- NOTE | 2020-10-13 09:24 | NUR ---
AM NOTE... ASSUMED CARE OF PT AT 0700, PT IS INTUBATED AND SEDATED WITH PROPOFOL AT 75MCG, AND FENTANYL DRIP AT 100MCG/HR. PT'S VENT SETTINGS AT THE START OF THIS SHIFT WERE AC/PC 18/16 PEEP OF 15 AND 100% FIO2 WITH O2 SATS 90-92%. L/S CLEAR IN THE UPPER/MID LOBES AND DIM IN THE BASES, PT HAS BEEN BREATHING OVER THE VENT AT APROX 20-24 BREATHS A MIN. PT IS IN SR IN THE 60'S-70'S, PT IS ON LEVOPHED AT 14 TO KEEP MAPS >65. ALSO NOTED THIS AM WAS TRACE EDEMA TO HIS BLE. PT'S TUBE FEED HAS BEEN RUNNING AT 15MLS/HR SINCE YESTERDAY AFTERNOON, THERE WAS 100MLS OF RESIDUAL THIS AM THAT WAS RE-FED. BT PRESENT AND HYPOACTIVE, ABD IS HARD TO ASSESS D/T THE PT BEING PRONED. PT'S OAKES IS PATENT AND DRAINING CLOUDY YELLOW URINE. AT APROX 0845 THE PT'S O2 SATS STARTED TO DROP AND THE PT'S BP ALSO STARTED TO DROP WITH MAPS IN THE 50'S, THE LEVOPHED WAS INCREASED FROM 16MCG TO 18MCG AND EVENTUALLY 20MCG TO KEEP THE MAPS >65. DR. WILKINSON WAS NOTIFIED AND NEW ORDERS FOR VASOPRESSIN WERE OBTAINED. RT AT THE BEDSIDE AND MADE ADJUSTMENTS TO THE VENT, THE NEW SETTINGS ARE: AC/PC: 24/16 PEEP 18 AND 100% THE PT'S O2 SATS SLOWLY TRENDED UP OVER THE NEXT 30 MINS FROM MID 80'S TO 91%. AT APROX 0915 DR. WILKINSON WAS AT THE BEDSIDE TO ASSESS THE PT, NEW ORDERS FOR NIMBEX WERE OBTAINED AT THAT TIME WELL. THE VASOPRESSIN WAS STARTED APROX 0915 AT 0930 THE PT'S BP IMPROVED ENOUGH TO START TITRATING DOWN THE LEVOPHED. WILL CONTINUE TO MONITOR. AT APROX 0915 DR. ZAVALA WAS AT THE BEDSIDE TO ASSESS THE PT
--- NOTE | 2020-10-13 11:28 | NUR ---
PT UPDATE... NIMBEX WAS STARTED AT 1015 WITH A 15MCG BOLUS AND NIMBEX DRIP STARTED AT 2MCG/KG/HR. PT'S TOF PRIOR TO STARTING THE NIMBEX WAS 4/4 AT A SETTING OF 5. AT 1115 THE TOF WAS STILL 4/4 WITH A SETTING OF 5, THE NIMBEX DRIP WAS TURNED UP TO 2.5MCG/KG/HR. PT'S SISTER CHERRI WAS UPDATED ON THE PT'S CONDITION AND THE PLAN OF CARE. THE PLAN IS TO UNPRONE HIM ONCE THE NIMBEX HAS HAD TIME TO TAKE EFFECT. WILL CONTINUE TO MONITOR.
--- NOTE | 2020-10-13 15:30 | NUR ---
PT UPDATE... AT APROX 1415 THE PT WAS TURNED FROM PRONE TO SUPINE, ONCE THE PT WAS SUPINE THE PT'S O2 SATS DROPPED FROM 94% DONW TO 79%, THE PT WAS ALREADY ON 100% FIO2 AND 18 OF PEEP ON THE VENT, THE RT BOGDAN INCREASED THE PEEP TO 20 (SEE RT DOCUMENTATION) DURING THIS TIME THE PT'S BP ALSO DROPED WITH MAPS IN THE LOW 50'S, DR. WILKINSON WAS NOTIFIED AND THE LEVOPHED WAS INCREASED FROM 16MCG TO 20MCG AND THEN 25 MCG, THIS WAS NOT ENOUGH TO GET THE PT'S MAP >60 SO NEOSENEPHERINE WAS ORDERED AND STARTED AT 20MCG. SOON THE PT'S MAP WAS >65 THE LEVOPHED WAS TITRATED BACK DOWN TO 20MCG. SLOWLY THE PT'S O2 SATS IMPROVED TO 88% PER DR. WILKINSON 88% IS OKAY FOR THIS PT. THE PT'S FENTANYL DRIP WAS CHANGED TO A PRODUCTION CONTROL ANALYST DURING THIS TIME WELL. WILL CONTINUE TO MONITOR.
--- NOTE | 2020-10-13 19:12 | NUR ---
SHIFT SUMMARY... NO ACUTE NEGATIVE CHANGES SINCE PREVIOUS NOTES. THE PT'S DAUGHTERS WERE AT THE BEDSIDE DURING VISITING HOURS, DR. WILKINSON UPDATED BOTH OF THEM ON THE PT'S CONDITION AND PLAN OF CARE. THE PT CONTINUES TO BE ON LEVOPHED AT 20MCG, DARRIN AT 30MCG AND VASOPRESSIN AT 0.04UNITS/HR. PT'S FENTANYL CODING MACHINE OPERATOR IS RUNNING AT 100MCG PER HOUR AND NIMBEX IS RUNNING AT 4, PT'S TOF IS 2/4 AT THE RIGHT ORTHODOX WITH A SETTING OF 5-6/10 ON THE TOF. PT'S OAKES IS PATENT AND DRAINING TO GRAVITY. PT HAS NOT HAD A BM THIS SHIFT. PT HAS NO GAG OR COUGH WITH SUCTIONING. PT'S VENT SETTINGS ARE AC/PC: 24/16 PEEP 20 AND 100% FIO2 WITH O2 SATS AT 91%. NO SECRETIONS NOTED DURING SUCTIONING. PT HAS BEEN FEBRILE T/O THE SHIFT WITH TMAX AT 102.9, PT HAS BEEN MEDICATED WITH TYLENOL SEVERAL TIMES THIS SHIFT BUT THIS DID NOT SEEM TO HELP REDUCE HIS TEMP. WILL CONTINUE TO MONITOR UNTIL REPORT IS GIVEN TO ONCOMING RN.
--- NOTE | 2020-10-13 19:15 | NUR ---
ASSUMED CARE OF PATIENT. REPORT RECEIVED FROM EUSEBIO JOHN. VENT SETTINGS AND IV PUMPS/MEDICATIONS REVIEWED. POC TO PRONE PT AT 2200.
--- NOTE | 2020-10-13 19:40 | NUR ---
TO4 2/4 ON NIMBEX AT 4MCG/KG/MIN. VS WNL
--- NOTE | 2020-10-14 01:17 | NUR ---
COOLING BLANKET APPLIED.
[2020-10-14 05:02] LABS: BASOPHILS ABSOLUTE AUTO 0.07 K/mm3 (0.00-0.23); BASOPHILS PERCENT AUTO 1 % (0-2); Hemoglobin 13.9 g/dL (13.5-17.5); LYMPHOCYTES ABSOLUTE AUTO 0.76 K/mm3 (0.84-5.20); LYMPHOCYTES PERCENT AUTO 6 % (21-46); MONOCYTES ABSOLUTE AUTO 0.37 K/mm3 (0.16-1.47); MONOCYTES PERCENT AUTO 3 % (4-13); Mean Corpuscular HGB 30.4 pg (26.0-34.0); Mean Corpuscular HGB Conc 33.1 g/dL (31.5-36.5); Mean Corpuscular Volume 92 fL (80-100); Mean Platelet Volume 11.5 fL (9.1-12.4); Platelet Count 200 K/mm3 (150-400); RDW Coefficient Variation 13.1 % (11.7-14.2); RDW Standard Deviation 44.2 fL (35.1-46.3); Red Blood Cell Count 4.57 M/mm3 (4.30-5.90); White Blood Cell Count 13.46 K/mm3 (4.00-11.30)
[2020-10-14 05:05] LABS: EOSINOPHILS PERCENT AUTO 4 % (0-6); IMMATURE GRAN ABSOLUTE AUTO 0.32 K/mm3 (0.00-0.10); IMMATURE GRAN PERCENT AUTO 2 % (0-1); NEUTROPHILS ABSOLUTE AUTO 11.44 K/mm3 (1.96-9.15); NEUTROPHILS PERCENT AUTO 85 % (41-73)
[2020-10-14 05:21] LABS: BAND PERCENT MAN 16 % (0-8); BASOPHILS PERCENT MAN 0 % (0-2); EOSINOPHILS ABSOLUTE MAN 0.13 K/mm3 (0.00-0.68); EOSINOPHILS PERCENT MAN 1 % (0-6); LYMPHOCYTES PERCENT MAN 3 % (21-46); METAMYELOCYTE ABSOLUTE MAN 0.13 K/mm3 (0.00-0.00); METAMYELOCYTE PERCENT MAN 1 % (0-0); MONOCYTES ABSOLUTE MAN 0.26 K/mm3 (0.16-1.47); MONOCYTES PERCENT MAN 2 % (4-13); MYELOCYTE ABSOLUTE MAN 0.13 K/mm3 (0.00-0.00); MYELOCYTE PERCENT MAN 1 % (0-0); NEUTROPHILS ABSOLUTE MAN 12.38 K/mm3 (1.96-9.15); SEG NEUTROPHILS PERCENT MAN 76 % (41-73); TOTAL CELLS COUNTED 100
[2020-10-14 05:24] LABS: Calcium, Blood 7.4 mg/dL (8.5-10.1); Creatinine, Blood 1.52 mg/dL (0.60-1.20); Magnesium, Blood 2.1 mg/dL (1.6-2.4); Phosphorus, Blood 4.3 mg/dL (2.5-4.9); Potassium, Blood 4.2 mmol/L (3.5-5.5)
[2020-10-14 06:13] LABS: PCO2 Arterial 37.8 mmHg (35-45); PO2 Arterial 66.6 mmHg (80-100)
--- NOTE | 2020-10-14 08:00 | NUR ---
ASSUMED CARE REPORT FROM RAH KAPLAN. PT INTUBATED, SEDATED AND PARALYZED. VENT SETTINGS AC/PC 16/1.05/17/100%. PROPOFOL AND FENTANYL GTT FOR SEDATION AND PAIN. PT COMPLIANT c VENT. NIMBEX GTT. TO4, 04/03. BIS MONITORING NOT AVAILABLE AT THIS TIME. LUNGS DIM THROUGHOUT. NO COUGH/GAG/SWALLOW REFLEX. SCANT THIN BOYD SECRETIONS THROUGH ETT. LEVO, VASO, AND DARRIN GTT FOR MAP>65. PRESSORS MAXED AT THIS TIME. BLE c DELAYED CAP, COOL, SLIGHT MOTTLING. TUBE FEEDS AT 15 ML/HR, RESIDUALS THIS AM 1310 ML, 250 ML REINSTILLED, TUBE FEEDS PLACED ON HOLD AT THIS TIME. CVC TO RIJ, DRESSING C/D/I. OAKES PATENT, DRAINING DENISE URINE c SEDIMENT TO GRAVITY. FEBRILE, COOLING BLANKETS IN PLACE. WILL CONTINUE TO MONITOR.
--- NOTE | 2020-10-14 13:03 | NUR ---
UPDATE PT TO REMAIN PRONE THIS SHIFT PER DR WILKINSON D/T O2 SATS. HEAD TURNED c ADDITIONAL STAFF. O2 SATS DECREASED TO 80%, BP DECREASED. DR WILKINSON AT BEDSIDE. EPI GTT ADDED. ART LINE ATTEMPTED, UNSUCCESSFUL. O2 SATS DID INCREASE TO LOW 90'S, MAP >65. WILL CONTINUE TO MONITOR.
--- NOTE | 2020-10-14 17:42 | NUR ---
SHIFT SUMMARY PT REMAINED INTUBATED, SEDATED, AND PARALYZED. VENT SETTINGS AC/PC 24/16/1./20/100%. LUNGS DIM THROUGHOUT. SCANT SECRETIONS THROUGH ETT. PROPOFOL AND FENTANYL FOR SEDATION AND PAIN. NIMBEX GTT. TO4 0/4 AT THIS TIME. WILL TITRATED NIMBEX DOWN. COMPLIANT c VENT. PT DESATS c MINIMAL MOVEMENT. SEE PREVIOUS NOTE. REMAINS IN PRONE POSITION, PLAN TO SUPINE AT 2200. MINIMAL TURNS PER DR WILKINSON. BP TRENDING DOWN THIS SHIFT. VASO GTT 0.04 UNITS/MIN, LEVO GTT 25 MCG/MIN, DARRIN GTT 300 MCG/MIN, AND EPI GTT 5 MCG/MIN INFUSING FOR MAP>65. EXTREMITIES COOL, MOTTLED. FEVER IMPROVED THIS SHIFT, 100.7 AT THIS TIME, COOLING BLANKET REMOVED, FAN IN PLACE. HIGH RESIDUALS THIS SHIFT. TUBE FEEDS PLACED ON HOLD FOR THIS SHIFT. WILL REASSESS IN THE AM PER DIETARY. SR, RATE 70-80'S. DAUGHTERS VISITED THIS SHIFT, SISTER UPDATED BY PHONE. WILL CONTINUE TO MONITOR UNTIL REPORT TO ONCOMING NURSE.
--- NOTE | 2020-10-14 19:20 | NUR ---
ASSUMPTION OF CARE PT REMAINS INTUBATED. VENT SETTINGS PC 18/15/20/100%. BIOX FLUCTUATES BETWEEN 85%-93%. MONITOR SHOWS PT IN NSR WITH HR IN 80S. SYSTOLIC BP 90S. PT RECEIVING EPINEPHRINE 7MCG/MIN (INCREASED TO 10MCG/MIN), NIMBEX 2.5MCG/KG/MIN, FENTANYL 100MCG/HR, NEOSYNEPHRINE 300MCG/MIN, VASOPRESSIN 0.04UNITS/MIN, LEVOPHED 25MCG/MIN, PROPOFOL 75MCG/KG/MIN, AND NS 10MLS/HR. PT CURRENT TEMP 100.2. PT TO REMAIN PRONED PER VICE PRESIDENT OF FINANCE. PT HAD 87ML RESIDUAL. TUBE FEEDING REINITIATED AT GOAL RATE OF 15. OAKES IN PLACE WITH SMALL AMOUNT OF DENISE URINE WITH SEDIMENT. BILAT PEDAL EDEMA, FEET ELEVATED ON PILLOWS.
[2020-10-15 03:22] LABS: BASOPHILS ABSOLUTE AUTO 0.12 K/mm3 (0.00-0.23); BASOPHILS PERCENT AUTO 1 % (0-2); Hematocrit 38.8 % (37.0-53.0); Hemoglobin 12.8 g/dL (13.5-17.5); LYMPHOCYTES ABSOLUTE AUTO 1.09 K/mm3 (0.84-5.20); LYMPHOCYTES PERCENT AUTO 6 % (21-46); MONOCYTES ABSOLUTE AUTO 1.02 K/mm3 (0.16-1.47); MONOCYTES PERCENT AUTO 5 % (4-13); Mean Corpuscular Volume 94 fL (80-100); Mean Platelet Volume 10.4 fL (9.1-12.4); NRBC ABSOLUTE 0.03 K/mm3 (0.00-0.02); NRBC Auto 0.2 /100 WBC (0.0-0.2); Platelet Count 106 K/mm3 (150-400); RDW Coefficient Variation 13.3 % (11.7-14.2); RDW Standard Deviation 46.2 fL (35.1-46.3); Red Blood Cell Count 4.13 M/mm3 (4.30-5.90); White Blood Cell Count 19.87 K/mm3 (4.00-11.30)
[2020-10-15 03:23] LABS: EOSINOPHILS ABSOLUTE AUTO 0.37 K/mm3 (0.00-0.68); EOSINOPHILS PERCENT AUTO 2 % (0-6); IMMATURE GRAN ABSOLUTE AUTO 1.02 K/mm3 (0.00-0.10); IMMATURE GRAN PERCENT AUTO 5 % (0-1); NEUTROPHILS ABSOLUTE AUTO 16.25 K/mm3 (1.96-9.15); NEUTROPHILS PERCENT AUTO 82 % (41-73)
[2020-10-15 03:25] LABS: Base Excess Venous -14.6 mmol/L; Bicarbonate Venous 13.3 mmol/L (24.0-30.0); PCO2 Venous 49.3 mmHg (38-42); PO2 Venous 46.2 mmHg (38-42); pH Blood Venous 7.09 (7.34-7.37)
[2020-10-15 03:38] LABS: Magnesium, Blood 1.8 mg/dL (1.6-2.4)
[2020-10-15 03:51] LABS: Bun/Creatinine Ratio 16.5 (12.0-20.0); Calcium, Blood 5.9 mg/dL (8.5-10.1); Creatinine, Blood 3.1 mg/dL (0.60-1.20); Potassium, Blood 5.3 mmol/L (3.5-5.5)
[2020-10-15 03:52] LABS: Phosphorus, Blood 7.3 mg/dL (2.5-4.9)
[2020-10-15 04:15] LABS: BAND PERCENT MAN 8 % (0-8); BASOPHILS PERCENT MAN 0 % (0-2); EOSINOPHILS ABSOLUTE MAN 0.59 K/mm3 (0.00-0.68); EOSINOPHILS PERCENT MAN 3 % (0-6); LYMPHOCYTES ABSOLUTE MAN 0.59 K/mm3 (0.84-5.20); LYMPHOCYTES PERCENT MAN 3 % (21-46); METAMYELOCYTE ABSOLUTE MAN 0.39 K/mm3 (0.00-0.00); METAMYELOCYTE PERCENT MAN 2 % (0-0); MONOCYTES ABSOLUTE MAN 0.19 K/mm3 (0.16-1.47); MONOCYTES PERCENT MAN 1 % (4-13); MYELOCYTE ABSOLUTE MAN 0.19 K/mm3 (0.00-0.00); MYELOCYTE PERCENT MAN 1 % (0-0); NEUTROPHILS ABSOLUTE MAN 17.88 K/mm3 (1.96-9.15); SEG NEUTROPHILS PERCENT MAN 82 % (41-73); TOTAL CELLS COUNTED 100
--- NOTE | 2020-10-15 04:29 | NUR ---
CODE BLUE 0418: MONITOR SHOWS BRADYCARDIA, HR IN 40S. NO PULSE NOTED, CODE CALLED. SEE CODE BLUE SHEET. 0429: NURSING ORDER PULLER, MARIO, ATTEMPTED TO CALL FAMILY WITHOUT SUCCESS. CODE CALLED AT THIS TIME, PT WITHOUT PULSE.
== END 2020-10-15 04:29 | DRG 208 ==
LOC: ER 09:14 → PCU 13:11 → ERHOLD 13:11 → ICUE 13:11 → ER 13:11 → MEDS 13:11 → ERHOLD 21:31 → PCU 21:31 → ICUE 10-11 10:49
PROVIDERS: Emergency Medicine; Internal Medicine; Internal Medicine Critical Care Medicine; Nurse Practitioner Acute Care; Student in an Organized Health Care Education/Training Program; ADMIT Hospitalist
PROC: 5A09357 Assistance with Respiratory Ventilation, Less than 24 Consecutive Hours, Continuous Positive Airway Pressure (ICD-10-PCS; principal; 2020-10-06)
PROC: 8E0ZXY6 Isolation (ICD-10-PCS; 2020-10-06)
PROC: XW033E5 Introduction of Remdesivir Anti-infective into Peripheral Vein, Percutaneous Approach, New Technology Group 5 (ICD-10-PCS; 2020-10-07)
PROC: 3E0333Z Introduction of Anti-inflammatory into Peripheral Vein, Percutaneous Approach (ICD-10-PCS; 2020-10-08)
PROC: 5A1945Z Respiratory Ventilation, 24-96 Consecutive Hours (ICD-10-PCS; 2020-10-11)
PROC: 02HV33Z Insertion of Infusion Device into Superior Vena Cava, Percutaneous Approach (ICD-10-PCS; 2020-10-11)
PROC: B548ZZA Ultrasonography of Superior Vena Cava, Guidance (ICD-10-PCS; 2020-10-11)
PROC: 3E043XZ Introduction of Vasopressor into Central Vein, Percutaneous Approach (ICD-10-PCS; 2020-10-11)
PROC: 0BH17EZ Insertion of Endotracheal Airway into Trachea, Via Natural or Artificial Opening (ICD-10-PCS; 2020-10-11)
PROC: 5A12012 Performance of Cardiac Output, Single, Manual (ICD-10-PCS; 2020-10-15)
DX: U07.1 COVID-19 (principal); J12.82 Pneumonia due to coronavirus disease 2019; J96.01 Acute respiratory failure with hypoxia; E87.1 Hypo-osmolality and hyponatremia; R74.01 Elevation of levels of liver transaminase levels; R57.8 Other shock; I10 Essential (primary) hypertension; I46.9 Cardiac arrest, cause unspecified; B95.61 Methicillin susceptible Staphylococcus aureus infection as the cause of diseases classified elsewhere; E78.5 Hyperlipidemia, unspecified; E86.0 Dehydration; Z78.1 Physical restraint status; Z68.33 Body mass index [BMI] 33.0-33.9, adult; E11.65 Type 2 diabetes mellitus with hyperglycemia; T38.0X5A Adverse effect of glucocorticoids and synthetic analogues, initial encounter; E66.9 Obesity, unspecified; I25.10 Atherosclerotic heart disease of native coronary artery without angina pectoris; F10.20 Alcohol dependence, uncomplicated; I25.2 Old myocardial infarction; Z79.82 Long term (current) use of aspirin; Z79.02 Long term (current) use of antithrombotics/antiplatelets; Z87.891 Personal history of nicotine dependence; Z95.5 Presence of coronary angioplasty implant and graft; Z79.899 Other long term (current) drug therapy; Z88.1 Allergy status to other antibiotic agents; Z91.030 Bee allergy status
CPT/HCPCS: 31500; 36415; 36556; 36600; 51703; 71045; 71260; 80048; 80053; 80069; 81001; 82728; 82803; 82947; 83036; 83605; 83615; 83735; 84100; 85025; 85379; 87040; 87070; 87077; 87086; 87147; 87185; 87186; 87205; 93005; 93010; 93306; 94002; 94003; 94660; 94762; 96372; 96372-59; 96374; 96375; 96376; 99285-25; A9270; C1751; C9113; J0171; J0295; J0461; J0696; J1100; J1650; J1815; J2060; J2250; J2370; J2704; J3010; J7030; J7040; J7050; J7060; J7120; Q9967